=== PATIENT | female | born 1955 | race Caucasian/White ===

== ENCOUNTER 2017-03-01 06:23 | Observation (INO) | payer SELFPAY ==
[~2017-03-01] VITALS: Ht 149.9 cm; Wt 79.3 kg
[~2017-03-01 06:23] MED LIST: LISINOP/HCTZ1 TAB PO; NO HOME MEDS
[2017-03-01] MEDS ORDERED: LISINOP/HCTZ1 TA1 PO (06:38)
[2017-03-01] MEDS ORDERED: METFORMIN500 MG PO (06:38)
[2017-03-01] MEDS ORDERED: ATORVASTATIN CA40 MG PO (06:39)
[2017-03-01] MEDS ORDERED: AMLODIPINE5 MG PO (06:39)
[2017-03-01 07:03] LABS: HEMATOCRIT 37.3 % (37.0-47.0); HEMOGLOBIN 12.4 g/dl (12.0-16.0); IMMATURE GRANULOCYTES 0.4 % (0.0-1.0); MEAN CELL VOLUME 96.1 fL CALC (80.0-100.0); MEAN CORPUSCULAR HGB CONC 33.2 g/L CALC (32.0-36.0); NEUT# 12.17 thou/uL (2.00-7.15); RED BLOOD COUNT 3.88 mill/uL (4.20-5.60); RED CELL DISTRI WIDTH 13.7 % (11.5-15.5)
[2017-03-01 07:13] LABS: ALBUMIN 4.8 g/dL (3.2-5.0); ALKALINE PHOSPHATASE 141 u/l (38-126); ANION GAP 22 (6-22 (CALC)); BILIRUBIN, TOTAL 0.7 mg/dL (0.0-1.4); BUN 30 mg/dL (8-23); BUN/CREATININE RATIO 29 (12-20 (CALC)); CALCIUM 10.9 mg/dL (8.4-10.2); CARBON DIOXIDE 21 mmol/l (22-30); CHLORIDE 105 mmol/l (95-108); GFR 56 ML/MIN (>=60 (CALC)); GFR FOR AFR.AMER. > 60 ML/MIN (>=60 (CALC)); GLUCOSE 213 mg/dL (82-115); POTASSIUM 4.4 mmol/l (3.5-5.1); SGOT/AST 24 u/l (9-36); SGPT/ALT 35 u/l (11-66); SODIUM 144 mmol/l (137-146); TOTAL PROTEIN 8.4 g/dL (6.3-8.2)
[2017-03-01 07:23] LABS: D-DIMER 3.73 mg/L (0.19-0.60); INTERNATIONAL NORMALIZED RATIO 0.9 RATIO (0.7-1.3); PROTHROMBIN TIME 10.4 SECONDS (9.0-12.5)
[2017-03-01 07:31] LABS: INFLUENZA A NONE DETECTED (NONE DETECT); INFLUENZA B NONE DETECTED (NONE DETECT)
[2017-03-01 15:00] VITALS: BP 104/70
[2017-03-01 18:26] LABS: CHOLESTEROL HDL RATIO 3.4 (<4.4 (CALC))
[2017-03-01 19:11] VITALS: BP 117/69
[2017-03-02 00:22] VITALS: BP 103/70
[2017-03-02 05:08] VITALS: BP 96/67
[2017-03-02 05:56] LABS: HEMATOCRIT 29.8 % (37.0-47.0); HEMOGLOBIN 9.8 g/dl (12.0-16.0); IMMATURE GRANULOCYTES 0.5 % (0.0-1.0); MEAN CELL VOLUME 96.4 fL CALC (80.0-100.0); MEAN CORPUSCULAR HGB 31.7 pG CALC (26.0-32.0); MEAN CORPUSCULAR HGB CONC 32.9 g/L CALC (32.0-36.0); NEUT# 13.4 thou/uL (2.00-7.15); RED BLOOD COUNT 3.09 mill/uL (4.20-5.60); RED CELL DISTRI WIDTH 13.9 % (11.5-15.5)
[2017-03-02 06:07] LABS: ANION GAP 18 (6-22 (CALC)); BUN 28 mg/dL (8-23); BUN/CREATININE RATIO 31 (12-20 (CALC)); CALCIUM 9.4 mg/dL (8.4-10.2); CARBON DIOXIDE 23 mmol/l (22-30); CHLORIDE 108 mmol/l (95-108); CREATININE 0.9 mg/dL (0.5-1.0); GFR > 60 ML/MIN (>=60 (CALC)); GFR FOR AFR.AMER. > 60 ML/MIN (>=60 (CALC)); GLUCOSE 130 mg/dL (82-115); MAGNESIUM 1.6 mg/dL (1.6-2.3); POTASSIUM 4.4 mmol/l (3.5-5.1); SODIUM 145 mmol/l (137-146)
[2017-03-02 09:03] VITALS: BP 116/60
[2017-03-02 11:00] VITALS: BP 106/68
[2017-03-02] MEDS ORDERED: LEVAQUIN750 MG PO (12:05)
== END 2017-03-02 13:17 | disposition home or self-care (01) | DRG 204 ==
LOC: ED 06:23 → ED-I 13:32 → ED 14:10 → MS2 14:11
PROVIDERS: Emergency Medicine; Family Medicine; Nurse Practitioner Family; ADMIT Internal Medicine; ATTEND Internal Medicine
DX: R05 Cough (principal); R06.02 Shortness of breath; E11.9 Type 2 diabetes mellitus without complications; I10 Essential (primary) hypertension; E78.5 Hyperlipidemia, unspecified; E66.9 Obesity, unspecified; I34.0 Nonrheumatic mitral (valve) insufficiency; Z79.84 Long term (current) use of oral hypoglycemic drugs; Z68.35 Body mass index [BMI] 35.0-35.9, adult; Z87.891 Personal history of nicotine dependence
CPT/HCPCS: G0378

== ENCOUNTER 2017-03-03 04:55 | Inpatient (IN) | payer SELFPAY ==
[2017-03-03] VITALS (20 sets, daily range): BP systolic 95–151; BP diastolic 52–84
[~2017-03-03] VITALS: Ht 149.9 cm; Wt 77.0 kg
[~2017-03-03 04:55] MED LIST changes: +AMLODIPINE5 MG PO; +ATORVASTATIN CA40 MG PO; +LEVAQUIN750 MG PO; +LISINOP/HCTZ1 TA1 PO; +METFORMIN500 MG PO
--- NOTE | 2017-03-03 04:55 | NUR ---
PT TO ROOM 11 BY EMS FOR SOB. PT STATES WOKE UP AT 3AM WITH SOB. PT JUST DISCHARGED FROM HOSPITAL YESTERDAY
--- NOTE | 2017-03-03 04:56 | NUR ---
PT. ON C-PAP PER EMS, RESP. THERAPIST AT BED SIDE. PLACED ON OUR C-PAP. V/S STABLE. PT. STATES SHE AWOKE AT 0300 WITH SOB. BILATERAL LUNG MOULTON ARE RHONCHI.
--- NOTE | 2017-03-03 05:16 | NUR ---
PATIENT RECEIVED BY ER STAFFS. MD DECIDED TO PLACE HER ON BIPAP. PLACED ON BIPAP ORDERED BY . BIPAP 14/7, RATE 16, FIO2 35%. WILL CONTINUE TO MONITOR THE PATIENT THROUGHTOUT THE SHIFT.
[2017-03-03 05:47] LABS: HEMATOCRIT 30.4 % (37.0-47.0); IMMATURE GRANULOCYTES 1.9 % (0.0-1.0); MEAN CELL VOLUME 98.1 fL CALC (80.0-100.0); MEAN CORPUSCULAR HGB 32.3 pG CALC (26.0-32.0); MEAN CORPUSCULAR HGB CONC 32.9 g/L CALC (32.0-36.0); NEUT# 15.94 thou/uL (2.00-7.15); RED BLOOD COUNT 3.1 mill/uL (4.20-5.60); RED CELL DISTRI WIDTH 13.9 % (11.5-15.5)
[2017-03-03 05:58] LABS: ALBUMIN 4.2 g/dL (3.2-5.0); ALKALINE PHOSPHATASE 96 u/l (38-126); ANION GAP 18 (6-22 (CALC)); BILIRUBIN, TOTAL 0.4 mg/dL (0.0-1.4); BUN 34 mg/dL (8-23); BUN/CREATININE RATIO 30 (12-20 (CALC)); CALCIUM 9.3 mg/dL (8.4-10.2); CARBON DIOXIDE 22 mmol/l (22-30); CHLORIDE 108 mmol/l (95-108); CREATININE 1.1 mg/dL (0.5-1.0); GFR 50 ML/MIN (>=60 (CALC)); GFR FOR AFR.AMER. > 60 ML/MIN (>=60 (CALC)); GLUCOSE 141 mg/dL (82-115); POTASSIUM 3.6 mmol/l (3.5-5.1); SGOT/AST 31 u/l (9-36); SGPT/ALT 44 u/l (11-66); SODIUM 144 mmol/l (137-146); TOTAL PROTEIN 7.5 g/dL (6.3-8.2)
--- NOTE | 2017-03-03 06:04 | NUR ---
PATIENT REFUSED TO BE STRAIGHT CATHED OR HAVE A DALTON INSERTED SUGGESTED BY DR. HERNANDEZ. ALSO REFUSED TO USE A BEDPAN.
--- NOTE | 2017-03-03 06:09 | NUR ---
PT. INSTRUCTED WE NEEDED A URINE SAMPLE. PT. REQUESTED BSC CHAIR. I INSTRUCTED THE PT. THAT I WILL PUT HER ON A BP BUT NO OOB AT THIS TIME. PT. VERBALIZED UNDERSTANDING. PT. PLACED ON BP UNABLE TO VOID, PT. REFUSED ST. CATH.
[2017-03-03 06:10] LABS: MYOGLOBIN 71 ng/mL (0 - 62)
--- NOTE | 2017-03-03 06:59 | NUR ---
REPORT GIVEN TO MAGDALENE STRINGER.
--- NOTE | 2017-03-03 07:30 | NUR ---
PT RETURNED FROM CT SCAN. PT DYSPNEIC AND RR 32. PT REPORTS SOME SOB AFTER MOVING OVER TO STRETCHER AFTER CT SCAN. PT PLACED IN HF POSITION AND RESPIRATORY PAGED. SAO2 98% ON 4 L NC.
--- NOTE | 2017-03-03 07:36 | NUR ---
RT AT BEDSIDE. BIPAP PLACED ON PT.
--- NOTE | 2017-03-03 08:15 | NUR ---
PT RESTING COMFORTABLY IN STRETCHER WITH HOB ELEVATED. DENIES ANY PAIN OR NEEDS AT THIS TIME. PT AWARE OF PENDING RESULTS AND WAIT TIME. CALL CONNOR WITHIN REACH.
--- NOTE | 2017-03-03 08:45 | NUR ---
ASSISTED PT ON BED BROWN. PT PROVIDED URINE SMAPLE. PT AWARE OF PENDING RESULTS AND DENIES ANY NEEDS AT THIS TIME. SA02 100% ON BIPAP AND RR 24. PT RESTING COMFORTABLY ON STRETCEHR WITH HOB ELEVATED.
[2017-03-03 08:58] LABS: URINE BILIRUBIN - DIPSTICK NEGATIVE (NEGATIVE); URINE BLOOD DIPSTICK TRACE-INTACT (NEGATIVE); URINE COLOR YELLOW; URINE GLUCOSE - DIPSTICK NEGATIVE (NEGATIVE); URINE KETONE NEGATIVE (NEGATIVE); URINE LEUK ESTERASE NEGATIVE (NEGATIVE); URINE NITRITE - DIPSTICK NEGATIVE (Negative); URINE PROTEIN - DIPSTICK NEGATIVE (NEG-TRACE); URINE SPECIFIC GRAVITY <=1.005; URINE UROBILINOGEN - DIPSTICK 0.2 E.U./dL (0.2)
[2017-03-03 09:01] LABS: URINE CLARITY CLEAR
--- NOTE | 2017-03-03 09:08 | NUR ---
IV ANTIBIOTICS INFUSING WITH NO DIFFICULTY, PT AWARE OF PENDING ADMISSION AND WAIT TIME. CALL CONNOR WITHIN REACH.
--- NOTE | 2017-03-03 09:17 | NUR ---
SBAR PRINTED TO FLOOR
--- NOTE | 2017-03-03 10:02 | NUR ---
REPORT CALLED TO SIOMARA GRAYSON.
--- NOTE | 2017-03-03 10:10 | NUR ---
PT ADMITTED TO ICU BED 8 VIA STRETCHER, MAX SLIDE ASSIST TO BED, ADMISSION ASSESSMENT COMPLETED SEE INTERVENTIONS, LUNGS SLIGHTLY DIMINSHED AND COARSE, PT DENIES O2 USAGE AT HOME, BUT PT CURRENTLY HAS O2 AT 3L VIA NC WITH O2 SATS 97-99% TELE READING SR RATE INTHE 70'S NO ECTOPY NOTED, PT ADMITTED RECENTLY FOR PNEUMONIA AND DISCHARGED HOME YESTERDAY, WITH INCREASED/WORSENING SHORTNESS OF BREATH EARLY THIS AM PROMPTING HER TO CALL 911, SKIN WARM DRY AND INTACT, BP STABLE IV ACCESSES X2 INTACT, LEFT AC 20G AND LEFT HAND 18G EMS SITE, VANCO INFUSING AT THIS TIME, ORDERED, ABD SOFT AND BS ACTIVE WITH LAST BM YESTERDAY PER PT, DENIES N/V. STATES SHE WAS RECENTLY DIAGNOSED WITH NIDDM AND TAKES GLUCOPHAGE, ADMITS SHE CHECKS HER BS BID AT HOME, ALL MONITORING EQUIPMENT EXPLAINED PRIOR TO APPLICATION, CALL CONNOR WITHIN REACH, SAFETY MEASURES INTRODUCED, EASILY VISIBLE FROM NURSES STATION FOR SAFETY, EDUCATED REGARDING BED REST AND REASON FOR THIS RELATED TO SIGNIFICANT EXERTIONAL SOB, PT VERBALIZES UNDERSTANDING
--- NOTE | 2017-03-03 10:15 | NUR ---
Admission Note Report Given to: SIOMARA GRAYSON Transported by: Wheelchair X Stretcher Transported with: X Nurse Transporter X Patent IV X O2 X Library Media Technician PT TO ICU 8 ON 3 L NC IN STABLE CONDITION.
--- NOTE | 2017-03-03 11:30 | NUR ---
PT USES BEDPAN WTIH MIN ASSIST, UMER CARE PROVIDED BY STAFF, REPOSITIONED SELF FOR COMFORT, WILL COTNINUE TO MONITOR.
--- NOTE | 2017-03-03 12:30 | NUR ---
PT RESTING, OFFERS NO NEW COMPLAINTS, CALL CONNOR WITHIN REACH.
--- NOTE | 2017-03-03 13:26 | NUR ---
S: JOSE WONG is a 61 F who presents with SOB, NGUYEN. She has a history of diabetes, heart disease, and hypertension. Pt was admitted to hospital 2 days ago for pneumonia. Was discharged yesterday, but is back again for increasing SOB. All medications in patient's chart were reviewed. O: VS: BP 98/61, P 74, RR 18, T 97.8 W 77.3 kg, HT 59 in, Scr= 1.1, CrCl= 48.0 ml/min A: Blood culture is pending. P: Patient is on Zosyn 3.375g IV q6h. Vancomycin ordered for pharmacy to dose. Start Vancomycin 1g IV q24h. Vancomycin trough is drawn before the 4th dose on 03/06/17 at 8:30 AM. Vancomycin goal trough is between 15-20 mcg/ml. Pharmacy will follow and or advise on antibiotics use as needed.
--- NOTE | 2017-03-03 13:35 | NUR ---
OFF BEDPAN, CONTINENT OF CLEAR YELLOW URINE, UMER CARE PROVIDED, SET UP ASSIST PROVIDED FOR AFTERNOON MEAL, CALL CONNOR WITHIN REACH
--- NOTE | 2017-03-03 13:59 | NUR ---
REG/MED TEDS APPLIED TO BOTH LEGS. PT REQUESTED NONSKID SOCKS BE APPLIED OVER TEDS.
--- NOTE | 2017-03-03 14:30 | NUR ---
PT MEDICATED WITH SOLUMEDROL. LUNCH TRAY REMOVED. PT ATE ABOUT 60% OF TRAY FROM [place]. PT STATES SHE "FEELS MUCH BETTER". CLEAR, EVEN, UNLABORED BREATHING. FRIEND @ BEDSIDE.
--- NOTE | 2017-03-03 15:24 | NUR ---
PT OOB TO BSC, TOLERATED WELL WITH MINIMAL SOB AND PULSE OX MAINTAINED AT 99%, VISITOR AT BEDSIDE, CALL CONNOR WITHIN REACH, INSTRUCTED TO CALL WHEN READY
--- NOTE | 2017-03-03 15:34 | NUR ---
PT ASSISTED BACK TO BED FROM BEDSIDE COMMODE. O2 DID NOT DROB BELOW 99% ON 3L NC. BED LINEN CHANGED. BREATHING EVEN & UNLABORED. WILL CONTINUE TO MONITOR.
--- NOTE | 2017-03-03 16:07 | NUR ---
DR BANDA @ BEDSIDE DISCUSSING TREATMENT PLAN, INCLUDING TEST/PROCEDURES.
--- NOTE | 2017-03-03 17:34 | NUR ---
PT RESTING, VISITOR REMAINS AT BEDSIDE, CALL CONNOR WITHIN REACH, WILL CONTINUE TO MONITOR
--- NOTE | 2017-03-03 17:56 | NUR ---
SET UP ASSIST PROVIDED FOR PM MEAL, CALL CONNOR WITHIN REACH, VISITOR AT BEDSIDE.
--- NOTE | 2017-03-03 17:59 | NUR ---
IV ABX RUNNING. PT ATE ABOUT 50% OF DINNER. FRIEND AT BEDSIDE. PT BREATHING EVEN & UNLABORED. WAITING ON ECHO U/S. PT TALKING WITH FRIEND, NO NEEDS OR COMPLAINTS AT THIS TIME. CALLBELL W/IN REACH. WILL CONTINUE TO MONITOR.
--- NOTE | 2017-03-03 18:52 | NUR ---
PT COMPLAINS OF SHORTNESS OF BREATH RESPS LABORED ADN PT ANXIOUS, CALL IN TO , MEDICATED ORDERED BIPAP PLACED BACK ON PAT AND R.T. AT BEDSIDE
--- NOTE | 2017-03-03 19:30 | NUR ---
awake. echo completed. admits to "anxious" when having echo. admits "my mom had open heart then a few days later". no resp distress. bipap conts. requests bipap to be removed. admits "i feel better". request denied. student outreach coordinator shows sinus rhythm. #18 lt hand & #20 lac saline locks. sips of fluids given. fall precautions cont.
--- NOTE | 2017-03-03 22:00 | NUR ---
requested bipap to be removed. rt notified.
--- NOTE | 2017-03-03 22:05 | NUR ---
rt here. rt & this underwriter mortgage loan spoke to pt @ length about bipap. pt again admits to "panic attack" earlier. instructed pt if panic attack occured again she would wear bipap all nite. pt verbalized understanding. bipap changed to nc per rt. has family friend @ bedside. neb tx given per rt.
[2017-03-04] VITALS (11 sets, daily range): BP systolic 87–108; BP diastolic 48–69
--- NOTE | 2017-03-04 00:01 | NUR ---
eyes closed. no resp diff. o2 conts per nc. threat monitoring analyst shows sinus rhythm.
--- NOTE | 2017-03-04 02:00 | NUR ---
resting quietly. resp even & unlabored. no distress. friend remains asleep in recliner.
--- NOTE | 2017-03-04 04:30 | NUR ---
lab here. blood drawn.
[2017-03-04 05:38] LABS: HEMOGLOBIN 9.2 g/dl (12.0-16.0); IMMATURE GRANULOCYTES 0.8 % (0.0-1.0); MEAN CELL VOLUME 96.2 fL CALC (80.0-100.0); MEAN CORPUSCULAR HGB 31.6 pG CALC (26.0-32.0); MEAN CORPUSCULAR HGB CONC 32.9 g/L CALC (32.0-36.0); NEUT# 12.47 thou/uL (2.00-7.15); RED BLOOD COUNT 2.91 mill/uL (4.20-5.60); RED CELL DISTRI WIDTH 13.7 % (11.5-15.5)
[2017-03-04 06:00] LABS: ANION GAP 16 (6-22 (CALC)); BUN 26 mg/dL (8-23); BUN/CREATININE RATIO 25 (12-20 (CALC)); CALCIUM 9.1 mg/dL (8.4-10.2); CARBON DIOXIDE 23 mmol/l (22-30); CHLORIDE 107 mmol/l (95-108); GFR 56 ML/MIN (>=60 (CALC)); GFR FOR AFR.AMER. > 60 ML/MIN (>=60 (CALC)); GLUCOSE 171 mg/dL (82-115); POTASSIUM 4.1 mmol/l (3.5-5.1); SODIUM 141 mmol/l (137-146)
--- NOTE | 2017-03-04 06:00 | NUR ---
awake. denies resp diff. o2 cont per nc. monitoring manager shows sinus rhythm.
--- NOTE | 2017-03-04 07:20 | NUR ---
PT SITTING UP IN BED WATCHING TV, A & O X3, PERRL, PT DENIES ANY SOB, HR 74, RESP. 20, BP 93/51, O2 99% ON 3L VIA NC, COARSE LUNG SOUNDS, STRONG RADIAL AND PEDEL PULSES, 20G LAC IV SALINE LOCKED, 18G EMS SITE SALINE LOCKED, NO REDNESS OR DRAINAGE AT EITHER SITE, AM ASSESSMENT COMPLETE, SEE INTERVENTIONS, SAFETY MEASURES REINFORCED, CALL CONNOR WITHIN REACH
--- NOTE | 2017-03-04 08:35 | NUR ---
DR LANG AT BEDSIDE DISCUSSING PLAN OF CARE
--- NOTE | 2017-03-04 09:15 | NUR ---
PT ASSISTED WITH GETTING WASHED UP, LINENS CHANGED, PT TOLERATED WELL
--- NOTE | 2017-03-04 11:30 | NUR ---
PT SITTING UP IN RECLINER TOLERATING WELL, SETUP ASSISTANCE PROVIDED WITH LUNCH
--- NOTE | 2017-03-04 12:15 | NUR ---
PT SITTING IN RECLINER WATCHING TV, VERBALIZES NO COMPLAINTS, TOLERATED LUNCH WELL, CALL CONNOR WITHIN REACH
--- NOTE | 2017-03-04 14:30 | NUR ---
VISITOR AT BEDSIDE
--- NOTE | 2017-03-04 14:45 | NUR ---
PT ASSISTED TO BED FROM RECLINER, PT AMBULATED WITH A STRONG STEADY GAIT, TOLERATED WELL, REMINDED TO CALL FOR ASSISTANCE, CALL CONNOR WITHIN REACH
--- NOTE | 2017-03-04 15:50 | NUR ---
MAXI YUSUF AT BEDSIDE DISCUSSING PLAN OF CARE
--- NOTE | 2017-03-04 17:15 | NUR ---
PT ASSISTED TO RESTROOM WITH MINIMAL ASSISTANCE, PT AMBULATED WITH A STRONG STEADY GAIT, TOLERATED WELL, CALL CONNOR WITHIN REACH
--- NOTE | 2017-03-04 17:30 | NUR ---
SETUP ASSISTANCE PROVIDED WITH PM MEAL, NO S/S OF DISTRESS, VISITOR REMAINS AT BEDSIDE, CALL CONNOR WITHIN REACH
--- NOTE | 2017-03-04 19:00 | NUR ---
awake. watching tv. denies resp diff. o2 cont per nc. lungs sound clear with diminished breath sounds bibas. telemetry monitor shows sinus rhythm. #18 lt hand & #20 lac saline locks. po fluids taken well. voids per bsc. fall precautions cont.
--- NOTE | 2017-03-04 21:00 | NUR ---
watching tv. denies c/o. friend @ bedside.
[2017-03-05] VITALS (13 sets, daily range): BP systolic 97–115; BP diastolic 57–78
--- NOTE | 2017-03-05 00:01 | NUR ---
awake. watching tv. no distress. cardiac monitor technician shows sinus rhythm.
--- NOTE | 2017-03-05 02:00 | NUR ---
resting quietly. resp even & unlabored. no apparent distress. o2 cont. friend asleep in recliner.
--- NOTE | 2017-03-05 04:00 | NUR ---
eyes closed. no distress. miner assistant shows sinus rhythm.
--- NOTE | 2017-03-05 05:00 | NUR ---
lab here. blood drawn.
[2017-03-05 05:27] LABS: HEMATOCRIT 27.4 % (37.0-47.0); MEAN CELL VOLUME 96.1 fL CALC (80.0-100.0); MEAN CORPUSCULAR HGB 31.6 pG CALC (26.0-32.0); MEAN CORPUSCULAR HGB CONC 32.8 g/L CALC (32.0-36.0); NEUT# 16.29 thou/uL (2.00-7.15); RED BLOOD COUNT 2.85 mill/uL (4.20-5.60); RED CELL DISTRI WIDTH 14.1 % (11.5-15.5)
[2017-03-05 05:47] LABS: MAGNESIUM 2.2 mg/dL (1.6-2.3)
[2017-03-05 05:48] LABS: ANION GAP 17 (6-22 (CALC)); BUN 30 mg/dL (8-23); BUN/CREATININE RATIO 28 (12-20 (CALC)); CALCIUM 9.3 mg/dL (8.4-10.2); CARBON DIOXIDE 24 mmol/l (22-30); CHLORIDE 106 mmol/l (95-108); CREATININE 1.1 mg/dL (0.5-1.0); GFR 50 ML/MIN (>=60 (CALC)); GFR FOR AFR.AMER. > 60 ML/MIN (>=60 (CALC)); GLUCOSE 149 mg/dL (82-115); POTASSIUM 4.4 mmol/l (3.5-5.1); SODIUM 142 mmol/l (137-146)
--- NOTE | 2017-03-05 06:00 | NUR ---
no acute change in condition. no resp distress. o2 cont. rn cvor shows sinus rhythm.
--- NOTE | 2017-03-05 09:00 | NUR ---
PT SEEN RESTING IN THE BED, NO DISTRESS. PT IS AMBULATORY TO , USES NC ONLY THEN. VISITOR AT BEDSIDE DURING THE NIGHT, GONE NOW. PT AWARE OF NEED FOR STOOL FOR OCCULT BLOOD, HAS PROVIDED ONE SO FAR. LUNGS CLEAR EXCEPT FOR VERY SLIGHT CRACKLES TO LLL.
--- NOTE | 2017-03-05 12:45 | NUR ---
PT OOB TO CHAIR, NO COMPLAINTS OF SHORTNESS OF BREATH. PT HAS BEEN OFF SUPPLEMENTAL OXYGEN SINCE EARLY THIS AM. ABXs FINISHED WITHOUT INCIDENT.. LW IV SITE REMOVED PER PAIN WITH INFUSIONS. LAC SITE WNL.
--- NOTE | 2017-03-05 14:44 | NUR ---
DR LANG AND MAXI YUSUF IN TO SEE PT, DECIDE ON DISCHARGE HOME TOMORROW. PT APPEARS STABLE, NO COMPLAINTS, NO EVIDENCE OF DISTRESS NOTED.
[2017-03-05] MEDS ORDERED: LOPRESSOR25 MG PO (15:04)
[2017-03-05] MEDS ORDERED: IPRATROPIU0.5 MG/3 M IN (15:04)
[2017-03-05] MEDS ORDERED: LISINOPRIL20 M1 PO (15:04)
[2017-03-05] MEDS ORDERED: LASIX 40 MG40 MG/TAB PO (15:04)
[2017-03-05] MEDS ORDERED: PREDNISONE10 MG PO (15:04)
--- NOTE | 2017-03-05 16:08 | NUR ---
PT REMAINS BEFORE, OOB IN CHAIR WITHOUT SHORTNESS OF BREATH OR OTHER COMPLAINT.
--- NOTE | 2017-03-05 19:00 | NUR ---
awake. denies resp diff. on ra @ present. lungs clear bilat. superintendent car construction shows sinus rhythm. #20 lac saline lock. po fluids taken well. voids per br. fall precautions cont. friend @ beside.
--- NOTE | 2017-03-05 21:10 | NUR ---
amb x1 assist to br. c/o "little" sob. pulse ox machine retrieved from rt. pulse ox 96% on ra. denies further sob. assisted back to bed.
[2017-03-05] MEDS ORDERED: ASPIRIN ADULT L81 M2 PO (21:57)
--- NOTE | 2017-03-06 00:01 | NUR ---
EYES CLOSED. NO DISTRESS. RISK PROFESSIONAL SHOWS SINUS RHYTHM OCCAS PVCS.
[2017-03-06 01:00] VITALS: BP 142/76
--- NOTE | 2017-03-06 01:30 | NUR ---
began coughing then c/o sob. sao2 89-90%. o2 began @ 2 l/m per nc. coughing stopped.
--- NOTE | 2017-03-06 01:50 | NUR ---
began coughing. became anxious. sao2 85%. podiatric technician showed sinus tach hr 130-140. rt notified & neb tx began. ativan 0.5mg ivp given. o2 increased to 4 l/m. expressed concern about "going home today". pt reassured. after approx 20 minutes pt became calm. sao2 95%. podiatric technician showed sinus rhythm hr 91. pt returned to sleep.
[2017-03-06 03:00] VITALS: BP 92/49
--- NOTE | 2017-03-06 03:00 | NUR ---
eyes closed. no resp distress. logistics account manager shows sinus rhythm pvcs. o2 cont per nc.
--- NOTE | 2017-03-06 04:30 | NUR ---
lab here blood drawn. bp 89/49. lopressor & zesteril withheld.
[2017-03-06 05:22] LABS: ANION GAP 16 (6-22 (CALC)); BUN 32 mg/dL (8-23); BUN/CREATININE RATIO 29 (12-20 (CALC)); CARBON DIOXIDE 24 mmol/l (22-30); CHLORIDE 107 mmol/l (95-108); CREATININE 1.1 mg/dL (0.5-1.0); GFR 50 ML/MIN (>=60 (CALC)); GFR FOR AFR.AMER. > 60 ML/MIN (>=60 (CALC)); GLUCOSE 99 mg/dL (82-115); POTASSIUM 3.7 mmol/l (3.5-5.1); SODIUM 143 mmol/l (137-146)
[2017-03-06 06:00] VITALS: BP 110/62
[2017-03-06 07:33] VITALS: BP 128/78
--- NOTE | 2017-03-06 08:18 | NUR ---
PT AWAKE,ALERT THIS MORNING, NO ACUTE DISTRESS NOTED. PT DOES HAVE CRACKLES IN LUNG BASES BILATERALLY, USING 2 LPM NC NOW. SHE IS SOMEWHAT ANXIOUS ABOUT GETTING SHORT OF BREATH. WHEN UP TO BR THIS AM, HER SATS WENT DOWN TO 88% AND HR WAS 128. SOON AFTER ARRIVAL BACK IN BED NUMBERS RETURNED TO NORMAL, 98%, HR 90s. VISITOR AT BEDSIDE. PT WANTS TO SPEAK WITH DOCTOR THIS MORNING WHEN HE ARRIVES.
[2017-03-06] MEDS ORDERED: CELEXA20 M1 PO (10:10)
[2017-03-06] MEDS ORDERED: ATIVAN1 M1 PO (10:11)
--- NOTE | 2017-03-06 10:26 | NUR ---
PT SEEN BY DR MARKS, ANTICIPATE DISCHARGE TODAY. PT IS CURRENTLY RECEIVING ABX, WILL CALL FOR RIDE WHEN THEY FINISH. QUESTIONS ANSWERED REGARDING DISCHARGE, PT COMFORTABLE WITH GOING HOME.
--- NOTE | 2017-03-06 12:34 | NUR ---
PT HAS FINISHED EATING. ANTIBIOTICS HAVE COMPLETED. DISCHARGE INSTRUCTIONS REVIEWED WITH PATIENT, INCLUDING NEW MED INSTRUCTIONS. PT VERBALIZES UNDERSTANDING OF SAME. PT HAS CALLED HER FRIEND REY FOR A RIDE HOME, AWAITING HER ARRIVAL. PT IN NO DISTRESS SHE RESTS IN THE CHAIR.
== END 2017-03-06 12:45 | disposition home or self-care (01) | DRG 306 ==
LOC: ED 04:55 → ED-I 05:01 → ED 05:01 → ED-I 09:00 → ED 09:35 → ICU 09:36
PROVIDERS: Emergency Medicine; Nurse Practitioner Family; ADMIT Internal Medicine; ATTEND Internal Medicine
PROC: 5A09357 Assistance with Respiratory Ventilation, Less than 24 Consecutive Hours, Continuous Positive Airway Pressure (ICD-10-PCS; principal; 2017-03-03)
DX: I08.1 Rheumatic disorders of both mitral and tricuspid valves (principal); J18.9 Pneumonia, unspecified organism; J96.02 Acute respiratory failure with hypercapnia; N17.9 Acute kidney failure, unspecified; E11.22 Type 2 diabetes mellitus with diabetic chronic kidney disease; E86.0 Dehydration; J44.0 Chronic obstructive pulmonary disease with (acute) lower respiratory infection; J44.1 Chronic obstructive pulmonary disease with (acute) exacerbation; I27.20 Pulmonary hypertension, unspecified; I12.9 Hypertensive chronic kidney disease with stage 1 through stage 4 chronic kidney disease, or unspecified chronic kidney disease; N18.9 Chronic kidney disease, unspecified; E78.5 Hyperlipidemia, unspecified; E66.9 Obesity, unspecified; F41.9 Anxiety disorder, unspecified; Z68.35 Body mass index [BMI] 35.0-35.9, adult; Z79.84 Long term (current) use of oral hypoglycemic drugs; Z87.891 Personal history of nicotine dependence
CPT/HCPCS: J1650; J2060; S0164